=== PATIENT | male | born 2005 | race Caucasian/White ===

== ENCOUNTER 2025-02-14 13:16 | Outpatient (CLI) | payer OTHER, SELFPAY ==
--- NOTE | 2025-02-14 13:20 | DI.RAD_ITS ---
Exam(s) XR CHEST 2V PA LATERAL EXAM: XR CHEST 2V PA LATERAL CLINICAL HISTORY: cough, r/o pneumonia R05.9 TECHNIQUE: 2D digital imaging was performed of the chest. Two images were obtained. PA and lateral views were obtained. COMPARISON: No exams were available for comparison FINDINGS: MEDIASTINUM: Normal. HEART: Normal. PULMONARY VASCULATURE: Normal. LUNGS: Clear. PLEURAL SPACE: No pleural effusion or pneumothorax. BONE:Within normal limits for the patient's age. OTHER FINDINGS:Normal. IMPRESSION: No acute pulmonary findings. DATA REPOSITORY: RADIATION DOSE DELIVERED:
== END 2025-02-14 13:36 ==
LOC: DI 13:17
PROVIDERS: Visit Provider Physician Assistant
DX: R05.9 Cough, unspecified (principal)
CPT/HCPCS: 71046

== ENCOUNTER 2025-03-11 10:26 | Emergency (ER) | payer OTHER, SELFPAY ==
[2025-03-11 10:28] VITALS: BP 149/95; PULSE 60; RESP 18; TEMP 36.2; O2SAT 97
--- NOTE | 2025-03-11 10:41 | W.ED.GENAD ---
Discharge Plan Disposition Patient Disposition: Home Condition: Good Discharge Details Clinical Impression: Concussion, Closed fracture nasal bone, Blunt trauma of nose Primary Care Provider: Lucia,Local ED Provider: Yolande Hayden Home Meds and New Rx's Prescriptions: Continued multivitamin [Multiple Vitamins] Tablet 1 tab PO DAILY fexofenadine [Lucy Allergy] 60 mg tablet 60 mg PO BID Discharge Instructions Instructions: Concussion, Adult ED, Nose Fracture ED Additional Instructions: As we discussed, your history and exam is most concerning for a concussion and likely a nasal fracture. We are holding off on imaging of your nose at this time as sometimes fractures will shift as swelling subsides therefore emergent imaging of a possible nasal fracture is not recommended. However, I did speak with your mother and she said that she will try to get you an appointment with the ENT for your time when you are home over break. I would also recommend that you follow-up with your primary care while you are home. Please continue to encourage hydration. Tylenol and/or ibuprofen as needed for discomfort. Please take as directed on the packaging. Please encourage brain rest with naps and plenty of rest. No alcohol, screen time or significant exertion. Mild activities such as walking is appropriate but no rigorous exercise. Please wait to return to basketball until cleared by clinician. Your school likely has a return to the play program regarding concussions, please defer to their recommendations. I have put on a call, per your request, to the corporate sales trainer and will also fill her in on findings here today. They should be able to help monitor you and turn to play appropriately as well as ensure that you get appropriate classroom documentation. Attached is a school note that cleared you through the rest of the week. If you develop any vomiting, vision changes, seizure activity, weakness or other new/worsening symptom please seek care urgently once again. Regarding the nose, please elevate head of bed as we discussed, continue with ice to help with the swelling. Stand Alone Forms: Portal Information, School Release HPI General Date/Time Provider Initiated Documentation: 03/11/25 10:40. Limitations to Documentation: no limitations. Information obtained by: patient, family (friend at bedside, spoke with mom on the phone) and RN notes reviewed. History of Present Illness 20 year old M presents to the emergency department with the chief complaint of facial trauma, headache, nose pain, described as severe and similar to prior episodes (hx of concussion and nasal fx), Quality is described as stabbing, aching and constant, and is localized to the head and face. Patient started experiencing this day(s) (0715) and it has been constant. No relieving factors improve symptom(s), Movement worsens symptoms (laughing, moving his face) . Patient notes headaches and rash (ecchymosis bridge of nose); denies confusion (states he was dazed initialy but that it resolved), cough, fever/chills, loss of appetite, nausea/vomiting (had nausea briefly then resolved, none now), shortness of breath, syncope (denies any LOC) and weakness. Patient did receive the following treatments prior to arrival, none Related Data Home Medications Medication Instructions Recorded Confirmed fexofenadine 60 mg tablet (Lucy 60 mg PO BID 02/14/25 03/11/25 Allergy) multivitamin (Multiple Vitamins 1 tab PO DAILY 02/14/25 03/11/25 tablet) Allergies Allergy/AdvReac Type Severity Reaction Status Date / Time albuterol Allergy Other (See Verified 03/11/25 10:31 Comment) Penicillins Allergy Hives Verified 03/11/25 10:31 General Stated Complaint: HeadInjury HALI: 3 Review of Systems Constitutional Constitutional: Reports as per HPI, Reports fatigue, Denies fever(s), Reports headache(s) and Denies weakness Eyes Eyes: Reports as per HPI, Denies blurry vision, Denies change in vision and Reports photophobia ENT Ears, Nose, Mouth, and Throat: Denies vertigo, Reports headache(s) and Denies neck pain Cardiovascular Cardiovascular: Reports as per HPI, Denies chest pain, Denies lightheadedness and Denies dyspnea Respiratory Respiratory: Reports as per HPI, Denies chest congestion, Denies cough and Denies dyspnea Gastrointestinal Gastrointestinal: Reports as per HPI, Denies abdominal pain, Denies change in bowel habits, Denies nausea and Denies vomiting Genitourinary Genitourinary: Reports system reviewed and no additional complaints, except as documented (denies change in urinary habits) Musculoskeletal Musculoskeletal: Reports as per HPI, Denies back pain, Denies myalgias, Denies muscle cramps, Denies neck pain and Denies numbness Integumentary/Breasts Skin/Breast: Reports as per HPI Neurologic Neurologic: Reports as per HPI, Denies abnormal movements, Denies abnormal speech, Denies behavioral changes, Denies confusion, Denies vertigo, Reports headache(s), Denies localized weakness, Denies numbness, Denies sensory deficit and Denies weakness Psychiatric Psychiatric: Denies behavioral changes and Denies confusion Endocrine Endocrine: Reports fatigue Exam Const General: cooperative, healthy appearing, no acute distress, well developed and well groomed Nutritional Appearance: average body habitus and well nourished Orientation: alert, awake and oriented x3 [facility] Head: normal to inspection, no palpable skull fracture, normocephalic and atraumatic Ears: hearing grossly normal bilaterally, external ears normal and TM's normal bilaterally General nose exam: external nose normal Face images:  1. 2. area of pain, ecchymosis and swelling. No break of the skin. Able to breath through his nose. No septal hematoma, septum is midline. No palpable defect. No bleeding although dried blood is noted, primarily in zach left naris. He has no maxillary instability, good ROM of the TMJ without pain. No orbital pain with palpation. EOM intact. No pain over zach zygomatic arch. No swelling or ecchymosis elsewhere. No nasal deformity appreciated, no bony abnormality. Mouth: oral mucosae normal and moist mucous membranes Teeth and gingiva: dentition normal and gingiva normal Throat: posterior oropharynx normal Eyes General: appearance normal, both eyes and all related structures Alignment and Position: alignment normal Periorbital: periorbital findings normal Eyelids: eyelids normal Sclera: sclerae normal Cornea: corneas normal Pupils: PERRL EOM: EOM intact bilaterally Neck Neck: normal visual inspection and full ROM Resp Effort & Inspection: normal respiratory effort, able to speak in complete sentences and no respiratory distress Auscultation: clear to auscultation bilaterally, no rales, no rhonchi and no wheezes Cardio Rate: regular rate Rhythm: regular rhythm Heart Sounds: S1 normal and S2 normal Back/Spine/Pelvis Cervical Spine: normal cervical lordosis and cervical ROM normal Neuro General: patient alert, patient awake and patient oriented x3 Cranial Nerves: CN's II-XI intact bilaterally Cognition: normal cognition Speech: speech normal Gait: normal gait Motor: muscle tone normal throughout, strength 5/5 throughout, no pronator drift, no movement abnormalities noted and no fasciculations Sensory Exam: no sensory deficits noted Coordination: [id number] test normal and [id number] test normal Course Vital Signs Vital signs: Vital Signs Temperature 36.2 C L 03/11/25 10:28 Pulse 60 03/11/25 10:28 Respiratory Rate 18 03/11/25 10:28 Blood Pressure 149/95 H 03/11/25 10:28 Pulse Oximetry 97 03/11/25 10:28 Temperature 36.2 C L 03/11/25 10:28 Pulse 60 03/11/25 10:28 Respiratory Rate 18 03/11/25 10:28 Respiratory Effort Normal, Non-Labored 03/11/25 10:38 Respiratory Depth Normal 03/11/25 10:38 Respiratory Pattern Normal 03/11/25 10:38 Blood Pressure 149/95 H 03/11/25 10:28 Pulse Oximetry 97 03/11/25 10:28 Pain Level 8 03/11/25 10:28 Medical Decision Making Patient is a pleasant 20-year-old male, otherwise healthy, presenting with a friend for evaluation of facial injury after being elbowed while playing basketball this morning. 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 During practice this morning friend jumped up and accidentally elbowed him in the nose. Patient reports that he has had nasal fracture as well as concussion in the past associated with similar injury. Had not had any surgeries or continued complications from these injuries, has been several years since these had last occurred. Patient denies falling, no loss of consciousness. He does state that he felt slightly dazed initially and had some nausea initially. States that he did not remember the drill that they are performing and friend who is with him confirms this that aside from forgetting the drill, patient was not having any confusion. Samuel and his friend both report that he has been fatigued since the fall but no continued confusion or nausea. States that he has had some mild photophobia but no visual changes. Patient is not currently wearing his glasses so difficult to completely assess for any visual changes but it does not sound like this was any change from baseline. Patient is not taking anything since the fall. This occurred few hours prior to arrival. States that he has been resting since that time. On exam, patient is in no acute distress. Hemodynamically stable. He is neurologically intact with no notable deficits. He does have ecchymosis and notable area of trauma right at the bridge of the nose. This is midline. He has no appreciable bony deformity. He is able to breathe through his nose although he is more comfortable breathing through his mouth at this point associate with swelling. He has no evidence to suggest a septal hematoma. Septum is midline. He has no evidence to suggest orbital fracture, intact extraocular movements. No maxillary instability. He has good range of motion of the TMJ. He is appropriate with his questions and answers, and is well oriented, no evidence of suggest continued confusion, GCS 15. [place] head CT negative. No indication for imaging at this time. The mechanism and physical exam is suggestive of a nasal fracture but as the patient's nose seems to be well aligned with no indication of emergent need for surgical intervention, no septal hematoma, I do not see need for emergent imaging of the nose. With the intact neurologic exam, patient not worsening since the onset of his symptoms, and negative [place] head CT rule, and I believe to get imaging at this point. Will give Tylenol to help with discomfort and apply some ice to his nose. Patient's request, also called his mom, Grazyna to give her an update. , But was able to speak with his mom. She is able to help him get home prior to the break as the patient may not be able to participate in classes given the fact that his history and exam is concerning for concussion although again, no indication at this point for ICH. We also discussed that imaging for the nose is not required at this point. As he has had nasal fractures in the past he does have an ENT provider and she will try to arrange for follow-up with primary care and ENT while he is home. Reevaluated the patient after he received the acetaminophen. improving with APAP and rest. Hydrating orally without recurrent nausea. Patient feels ready to go home, friend is driving. He did specifically ask about driving and I advise that while there is no hard and fast rules on returning to driving, I did not recommend him driving until he is symptom-free and has been cleared to do so as he does seem quite fatigued. I also believe, particularly given the difficulty of the courses he is currently involved in, that he hold off on any classes for the rest of the week and not return to basketball. At his request, I also did reach out to his oncologist corporate sales trainer, Nehal Chiu. She did not answer but I did leave a generic message and asked her to call me back so we can discuss further. As he is a collegiate athlete, they will likely have a strict return to play plan for somebody in the postconcussion setting. Encourage hydration. Tylenol and/or ibuprofen as needed for discomfort. Encouraged to try to prop him self up more at night to help reduce the amount of swelling to his face and nose. Strict return precautions were discussed. We did discuss the importance of following the postconcussive care outline to help prevent postconcussive syndrome. Encourage brain rest. All of his questions and concerns were addressed and patient is in agreement this plan. Will follow-up at home in [place] with ENT and primary care next week. Dictation completed using [employer] dictation software. Please excuse any errors or manager of transportation anomalies that may remain. PFSH All Active Problems (Updated 03/11/25 @ 12:14 by BALBINA Loya) Blunt trauma of nose (Acute) Closed fracture nasal bone (Acute) Concussion (Acute) Social History Smoking/Tobacco Use Status: Never Smoking risk assessment performed?: Yes Alcohol Intake: never Drug use: Never Substance use type: does not use Housing: house Do you feel safe at home: Yes Do you feel safe in your relationship?: Yes
[2025-03-11] MEDS: Acetaminophen 500 MG TAB 1000 MG PO (11:09)
[2025-03-11 11:44] VITALS: BP 161/89; PULSE 58; O2SAT 99
[2025-03-11 12:29] VITALS: BP 141/93; PULSE 54; RESP 16; O2SAT 100
== END 2025-03-11 12:30 | disposition home or self-care (01) ==
PROVIDERS: Emergency Provider Physician Assistant
DX: S02.2XXA Fracture of nasal bones, initial encounter for closed fracture (principal); W21.05XA Struck by basketball, initial encounter; S06.0X0A Concussion without loss of consciousness, initial encounter
CPT/HCPCS: 99283 ×2